=== PATIENT | male | born 1980 | race Caucasian/White ===

== ENCOUNTER 2023-08-07 12:20 | Inpatient (IN) | payer MEDICAID ==
[~2023-08-07] VITALS: Ht 182.9 cm; Wt 72.6 kg
[2023-08-07 12:28] VITALS: BP 121/70; PULSE 63; RESP 22; TEMP 96; O2SAT 96
[2023-08-07] MEDS: KETOROLAC 30 MG/ML VIAL IVP ONE (12:57)
[2023-08-07] MEDS ORDERED: ceFAZolin 1,000 MG VIAL ONE (13:29)
[2023-08-07 14:05] LABS: BASOPHILS % (AUTO) 0.3 % (0.0-2.0); EOSINOPHILS # (AUTO) 0.2 K/uL (0-0.4); EOSINOPHILS % (AUTO) 1.5 % (0.0-4.0); HEMATOCRIT 40.1 % (36-52); HEMOGLOBIN 13.4 g/dL (12.0-18.0); LYMPHOCYTES # (AUTO) 1.6 K/uL (2.0-11.5); LYMPHOCYTES % (AUTO) 10.8 % (20.5-51.1); MEAN CORPUSCULAR HEMOGLOBIN 30 pg (27-31); MEAN CORPUSCULAR HGB CONC 34 g/dL (33-37); MEAN CORPUSCULAR VOLUME 90.7 fL (80-94); MONOCYTES # (AUTO) 1.2 K/uL (0.8-1.0); MONOCYTES % (AUTO) 8.1 % (1.7-9.3); NEUTROPHILS # (AUTO) 11.6 K/uL (1.8-7.7); NEUTROPHILS % (AUTO) 79.3 % (42.2-75.2); PLATELET COUNT (AUTO) 186 K/uL (140-450); RED BLOOD CELL COUNT(AUTO) 4.42 MIL/uL (4.20-6.10); RED CELL DISTRIBUTION WIDTH 14.1 % (11.6-13.7); WHITE BLOOD COUNT (AUTO) 14.6 K/uL (4.8-10.8)
[2023-08-07 14:17] LABS: INR 1.06 (0.8-1.2); PROTHROMBIN TIME 11.1 secs (10.8-13.4)
[2023-08-07 14:22] LABS: LACTIC ACID 1.8 mmol/L (0.4-2.0)
[2023-08-07 14:25] LABS: ANION GAP 10.3 (8-16); CALCIUM 8.6 mg/dL (8.5-10.1); CARBON DIOXIDE 29.9 mmol/L (21-32); CREATININE 0.9 mg/dL (0.6-1.3); POTASSIUM 4.2 mmol/L (3.5-5.1)
[2023-08-07] MEDS ORDERED: ACETAMINOPHEN 325 MG TAB PO PRN (14:30)
[2023-08-07] MEDS ORDERED: MORPHINE SULFATE 2 MG/ML SYR IVP PRN (14:50)
[2023-08-07 20:45] VITALS: BP 118/80; PULSE 64; RESP 18; TEMP 98.9; O2SAT 98
[2023-08-07] MEDS: PIPERACILLIN/TAZOBACTAM 3.375 GM in DEXTROSE 5% 50 ML IV SCH (23:14)
[2023-08-07] MEDS: PIPERACILLIN/TAZOBACTAM 3.375 GM VIAL IV ONE (23:15)
[2023-08-08 04:00] VITALS: BP 126/77; PULSE 69; RESP 18; TEMP 99; O2SAT 96
[2023-08-08] MEDS: PIPERACILLIN/TAZOBACTAM 3.375 GM VIAL IV ONE (04:10)
[2023-08-08] MEDS: HYDROcodone/APAP 5/325 MG 1 TAB TAB PO PRN (05:38)
[2023-08-08 06:46] LABS: BASOPHILS % (AUTO) 0.2 % (0.0-2.0); EOSINOPHILS # (AUTO) 0.2 K/uL (0-0.4); EOSINOPHILS % (AUTO) 0.8 % (0.0-4.0); HEMATOCRIT 40.3 % (36-52); HEMOGLOBIN 13.4 g/dL (12.0-18.0); LYMPHOCYTES # (AUTO) 1.7 K/uL (2.0-11.5); LYMPHOCYTES % (AUTO) 8.8 % (20.5-51.1); MEAN CORPUSCULAR HEMOGLOBIN 30 pg (27-31); MEAN CORPUSCULAR HGB CONC 33 g/dL (33-37); MEAN CORPUSCULAR VOLUME 90.7 fL (80-94); MONOCYTES # (AUTO) 1.4 K/uL (0.8-1.0); MONOCYTES % (AUTO) 6.9 % (1.7-9.3); NEUTROPHILS # (AUTO) 16.6 K/uL (1.8-7.7); NEUTROPHILS % (AUTO) 83.3 % (42.2-75.2); PLATELET COUNT (AUTO) 196 K/uL (140-450); RED BLOOD CELL COUNT(AUTO) 4.44 MIL/uL (4.20-6.10); RED CELL DISTRIBUTION WIDTH 14.1 % (11.6-13.7); WHITE BLOOD COUNT (AUTO) 19.9 K/uL (4.8-10.8)
[2023-08-08 07:00] LABS: ALBUMIN 3.3 g/dL (3.4-5.0); ANION GAP 13.4 (8-16); CALCIUM 8.2 mg/dL (8.5-10.1); CARBON DIOXIDE 25.4 mmol/L (21-32); CREATININE 0.9 mg/dL (0.6-1.3); POTASSIUM 3.8 mmol/L (3.5-5.1); TOTAL BILIRUBIN 0.6 mg/dL (0.0-1.0); TOTAL PROTEIN, SERUM 7.3 g/dL (6.4-8.2)
[2023-08-08 08:00] VITALS: BP 110/60; PULSE 70; RESP 18; TEMP 98.8; O2SAT 96; O2SAT 99
[2023-08-08 12:00] VITALS: BP 112/61; PULSE 72; RESP 18; TEMP 98.6; O2SAT 97
[2023-08-08] MEDS ORDERED: AMOX-999 PO (14:54)
== END 2023-08-08 14:36 | disposition left against medical advice (07) | DRG 342 ==
LOC: MED 12:20 → MTU 14:30
PROVIDERS: ADMIT Family Medicine; ATTEND Family Medicine
DX: S59.292A Other physeal fracture of lower end of radius, left arm, initial encounter for closed fracture (principal); E44.1 Mild protein-calorie malnutrition; W54.0XXA Bitten by dog, initial encounter; Y93.89 Activity, other specified; Y92.89 Other specified places as the place of occurrence of the external cause; Y99.8 Other external cause status; Z68.21 Body mass index [BMI] 21.0-21.9, adult
CPT/HCPCS: 36415; 73110; 80048; 80053; 83605; 85025; 85610; 85730; 87040; 87081; 90471; 90715; 93005; 96374; 96375; 99285; J0690; J1885; J2543; J7060